=== PATIENT | male | born 1995 | race Caucasian/White ===

== ENCOUNTER 2018-11-08 16:13 | Emergency (ER) | payer OTHER ==
[~2018-11-08] VITALS: Ht 177.8 cm; Wt 65.8 kg
[2018-11-08] MEDS ORDERED: NAPROSYN500 MG PO (18:58)
[2018-11-08] MEDS ORDERED: MEDROLDOSEPACK PO (18:58)
[2018-11-08 19:16] VITALS: BP 114/64
== END 2018-11-08 19:17 | disposition home or self-care (01) ==
LOC: ER 16:13
DX: S01.412A Laceration without foreign body of left cheek and temporomandibular area, initial encounter (principal); S20.212A Contusion of left front wall of thorax, initial encounter; L25.9 Unspecified contact dermatitis, unspecified cause; F90.9 Attention-deficit hyperactivity disorder, unspecified type; F31.9 Bipolar disorder, unspecified; F41.9 Anxiety disorder, unspecified; X58.XXXA Exposure to other specified factors, initial encounter; Y93.89 Activity, other specified; Y92.89 Other specified places as the place of occurrence of the external cause; Y99.8 Other external cause status

== ENCOUNTER → 2019-05-10 | Emergency (ER) | payer OTHER ==
[~2019-05-10] VITALS: Ht 175.3 cm; Wt 59.0 kg
[~2019-05-10] MED LIST: MEDROLDOSEPACK PO; NAPROSYN500 MG PO
[2019-05-10 05:19] LABS: ABSOLUTE NEUTROPHILS 5.4 thou/uL (1.4-8.2); BASOPHILS 0.8 % (0.0-2.0); EOSINOPHILS 0.3 % (0.0-3.0); HEMATOCRIT 44.9 % (42.0-52.0); HEMOGLOBIN 15.5 gm/dL (14.0-18.0); MCHC 34.6 g/dL (28.0-37.0); MCV 83.9 fL (80.0-100.0); MONOCYTES 8.7 % (1.0-8.0); PLATELET COUNT 271 thou/uL (150-400); POLYS 70.2 % (36.0-66.0); RBC 5.35 mil/uL (4.50-6.00); WBC 7.7 thou/uL (4.0-11.0)
[2019-05-10 05:20] LABS: URINE BILIRUBIN NEGATIVE (Negative); URINE BLOOD NEGATIVE (Negative); URINE CLARITY CLEAR; URINE COLOR YELLOW; URINE GLUCOSE-RANDOM* NEGATIVE (Negative); URINE KETONES NEGATIVE (Negative); URINE LEUKOCYTES-REFLEX NEGATIVE (Negative); URINE NITRITE-REFLEX NEGATIVE (Negative); URINE PROTEIN (DIPSTICK) NEGATIVE (Negative); URINE UROBILINOGEN 0.2 E.U./dl (0.2-1.0)
[2019-05-10 05:27] LABS: ANION GAP 14 mmol/L (7-16); BUN 19 mg/dL (7-18); CHLORIDE 100 mmol/L (98-107); CO2 22 mmol/L (21-32); CREATININE 1.2 mg/dL (0.7-1.3); GLUCOSE 79 mg/dL (74-106); POTASSIUM 3.7 mmol/L (3.5-5.1); SODIUM 136 mmol/L (136-145)
[2019-05-10 05:30] LABS: AMP/METHAMP POSITIVE (Negative); BARBITURATES Negative (Negative); BENZODIAZEPINES Negative (Negative); COCAINE Negative (Negative); METHADONE Negative (Negative); OPIATES Negative (Negative); PCP Negative (Negative)
[2019-05-10 05:33] LABS: SALICYLATE < 2.8 mg/dL (2.8-20.0); SGOT 17 U/L (15-37); SGPT 27 U/L (30-65); TOTAL BILIRUBIN 1.2 mg/dL (<0.1-1.0); TOTAL PROTEIN 8.4 g/dL (6.4-8.2)
[2019-05-11 01:14] VITALS: BP 140/80
--- NOTE | 2019-05-12 12:33 | EKG ---
[facility] [place] [address] ELECTROCARDIOGRAM REPORT Name: EUGENIA MCGEE Room #: REG [facility].#: [id number] Admission: 05/10/19 Attend Phys: Discharge: Date of : 89 Report #: [id number] THIS REPORT FOR: cc: NO FAMILY PHYSICIAN or PCP NO FAMILY PHYSICIAN or PCP Aris Cooper MD [facility] ~ THIS REPORT FOR: //name// [facility] ED Test Date: 2019-05-10 Test Time: 04:59:55 Pat Name: EUGENIA MCGEE Department: Room: Gender: M [employer]: [place] : 1995 Requested By: Hermes Nava Order Number: [id number] MD: Aris Cooper Measurements Intervals [place] Rate: 83 P: 36 [place]: 134 QRS: 59 QRSD: 97 T: 34 QT: 386 QTc: 454 Interpretive Statements Sinus rhythm Normal tracing No previous ECG available for comparison Electronically Signed On 05-10-2019 9:41:04 [employer] by Aris Cooper [email or web address] <ELECTRONICALLY SIGNED> By: Aris Cooper MD, FAC 05/10/19 [id number] [id number] Aris Cooper MD, FACC /EPI
== END ==
LOC: ER 04:42
PROVIDERS: Emergency Medicine
DX: S50.812A Abrasion of left forearm, initial encounter (principal); F15.10 Other stimulant abuse, uncomplicated; F90.9 Attention-deficit hyperactivity disorder, unspecified type; F31.9 Bipolar disorder, unspecified; F41.9 Anxiety disorder, unspecified; F17.210 Nicotine dependence, cigarettes, uncomplicated; Z88.8 Allergy status to other drugs, medicaments and biological substances; X58.XXXA Exposure to other specified factors, initial encounter; Y93.89 Activity, other specified; Y92.89 Other specified places as the place of occurrence of the external cause; Y99.8 Other external cause status